=== PATIENT | male | born 1965 | race Two or more races ===

== ENCOUNTER 2016-09-18 23:45 | Observation (INO) | payer BC ==
--- NOTE | ~2016-09-18 | DS ---
Discharge Summary [facility] [address] [place]. [address] NAME: JOCELINE TORRES : 61 STATUS : DIS Aminah PAT#: [id number] AGE: 50 ADM/REG DATE : 09/18/16 MR#: [id number] REPORT SERV DATE: 09/19/16 DICTATED BY: KATHARINE AVITIA DATE: 09/19/16 REPORT STATUS : Draft TRANSCRIBED BY: BROCK DATE: 09/19/16 ADMISSION DATE: 09/18/2016 DISCHARGE DATE: 09/19/2016 CONSULTANTS: Chilo Cruz M.D. DISCHARGE DIAGNOSES: 1. Possible transient ischemic attack. 2. Chest pain. 3. Dysphagia. 4. Cervical radiculopathy. 5. Gastroesophageal reflux disease. 6. Hypertension. 7. Diabetes mellitus type 2. 8. Hyperlipidemia. IMAGIN. CT of the brain without contrast revealed negative head CT. 2. Chest x-ray PA and lateral revealed lungs clear, heart size normal. 3. Carotid blood flow revealed no significant stenosis, demonstrated involving the cervical portions of the internal carotid arteries bilaterally (category N). The vertebral arteries are patent with antegrade flow bilaterally. 4. Echocardiogram revealed normal LV size and systolic function, estimated EF 55%. No regional wall motion abnormalities identified. Mild diastolic dysfunction. Normal RV size and systolic function. Borderline normal left atrial size. Negative intravenous bubble study. No evidence of intracardiac shunt. 5. EKG showed normal sinus rhythm, ventricular rate 65 beats per minute, QT corrected 395 milliseconds. 6. Nuclear myocardial imaging revealed Rhett stage 4 achieved. No anginal chest pain. No EKG changes of ischemia. Imaging demonstrated no ischemia, post exercise LVEF greater than 60%, overall low risk stress test. HISTORY OF PRESENT ILLNESS: For complete history, please refer to H and P by Dr. Marquez Rao. Briefly Mr. Torres is a 50-year-old man who presented to the emergency room with complaints of left-sided paresthesias, dysphagia, and chest pain. He states that he had prior to his admission for three days or so, some left hand pain and numbness as well as some difficulty swallowing, but no pain. He developed some chest pain on the day of his admission. The pain was nonradiating and not associated with any other symptoms. He did have some numbness over his left side of his face, left arm, and left side of his tongue that subsided prior to his admission. He was admitted to the Hospitalist Service for further evaluation and treatment. LABORATORY STUDIES: 1. Troponin x3 were negative at less than 0.02. 2. A lipid panel revealed a cholesterol of 134, HDL 32, LDL 63, triglycerides 199. 3. BNP less than 2. Discharge Summary [place] [address] [facility] [place]. [address] NAME: JOCELINE TORRES : 61 STATUS : DIS Aminah PAT#: [id number] AGE: 50 ADM/REG DATE : 09/18/16 MR#: [id number] REPORT SERV DATE: 09/19/16 DICTATED BY: KATHARINE AVITIA DATE: 09/19/16 REPORT STATUS : Draft TRANSCRIBED BY: BROCK DATE: 09/19/16 4. Hemoglobin A1c 7.1. 5. CBC revealed a white count of 7.4, hemoglobin 15.1, hematocrit 43.3, platelets 262,000. PT 13.4, INR 1.0. HOSPITAL COURSE: Mr. Torres was admitted to a telemetry bed in the clinical decision unit with the diagnosis of TIA. A consult was placed to Dr. Cruz for dysphagia. Laboratory studies were ordered along with serial troponins, results as above. Carotid duplex, echocardiogram, and nuclear stress test were also scheduled. The patient was given DVT prophylaxis, IV fluids, and aspirin 325 mg p.o. daily. In addition, he was provided with his home medication. I initially saw Mr. Torres early afternoon after he returned from his stress test. He denied any chest pain or shortness of breath. His only complaint was a slight headache and intermittent left arm pain. Upon my exam, he was alert and oriented x3. No focal deficits. Lungs are clear to auscultation bilaterally. CV: He had a regular rhythm. No murmurs, rubs, or gallops. ABDOMEN: Soft and nontender. Active bowel sounds. Palpable peripheral pulses without edema. He did have one place upper left back scapular region that was tender upon palpation minimally. When I palpated this area, he complained of some left arm discomfort. Otherwise, he was without complaints. He was seen in the afternoon by Dr. Chilo Cruz, who stated that Mr. Torres could be discharged home as his echo, stress test, carotid ultrasound were normal. Therefore, on the afternoon of 09/19/2016, Mr. Torres was discharged home in stable condition. DISCHARGE INSTRUCTIONS: 1. Diet as tolerated and per Dr. Cruz's instructions for EGD as an outpatient tomorrow at 12 noon. 2. Activity as tolerated. DISCHARGE MEDICATIONS: Aspirin 81 mg p.o. daily, DiaBeta 7.5 mg p.o. b.i.d., Zocor 10 mg p.o. daily at bedtime, Diovan 40 mg p.o. daily, metformin 500 mg p.o. b.i.d., Protonix 40 mg p.o. daily before breakfast and prescription given, ranitidine 300 mg p.o. at bedtime and prescription given, both Protonix and ranitidine prescriptions were per Dr. Cruz. OTHER DISCHARGE INSTRUCTIONS: Mr. Torres is asked to follow up with his primary care provider, Dr. Rockwell in 7 to 10 days, and again with Dr. Cruz tomorrow for upper GI endoscopy. CAROLYN/BROCK HAYDEE CroweP- / [id number] CC: Ambrosio Gonzales MD Discharge Summary [address] [address] NAME: JOCELINE TORRES : 61 STATUS : DIS Aminah PAT#: [id number] AGE: 50 ADM/REG DATE : 09/18/16 MR#: [id number] REPORT SERV DATE: 09/19/16 DICTATED BY: KATHARINE AVITIA DATE: 09/19/16 REPORT STATUS : Draft TRANSCRIBED BY: MODL DATE: 09/19/16 Chilo Cruz M.D.
--- NOTE | ~2016-09-18 | CN ---
Consultation Report [facility] [address] [place]. [address] NAME: JOCELINE TORRES : 61 STATUS : ADM Aminah PAT#: [id number] AGE: 50 ADM/REG DATE : 09/18/16 MR#: [id number] REPORT SERV DATE: 09/19/16 DICTATED BY: BLAKE HDZ DATE: 09/19/16 REPORT STATUS : Draft TRANSCRIBED BY: MODL DATE: 09/19/16 DATE OF CONSULTATION: 09/19/2016 CHIEF COMPLAINT: A 50-year-old male presented with left-sided paresthesia and dysphagia, and has some mild chest pain. Mr. Carrillo is well-known to me. Has a history of reflux disease and difficulty in swallowing, and had an EGD and dilatation done about six years ago. Yesterday, the patient was at home resting when he developed some paresthesia in his left hand, left shoulder, and neck, and then had some chest pain. Hence, was admitted through the ER. Currently, he has no chest pain. No paresthesia. He had an echo stress test done which did not show anything. His carotid artery Doppler and ultrasound are pending. Currently, he feels better. Has no chest pain. No shortness of breath. No palpitation. Has no lightheadedness or dysarthria. Has some difficulty in swallowing, sort of an irritation. PAST MEDICAL HISTORY: Significant for diabetes, hypertension, gastroesophageal reflux disease, and elevated cholesterol. Has no previous history of any heart disease. PAST SURGICAL HISTORY: None. ALLERGIES: NONE KNOWN. SOCIAL HISTORY: He is . Has three children. Works in the [employer]. Does not use any tobacco or alcohol. FAMILY HISTORY: Significant for heart disease. CURRENT MEDICATIONS: Aspirin 81 mg, glyburide 7.5 mg p.o. b.i.d., metformin 500 mg p.o. b.i.d., Zocor 10 mg p.o. daily, and Diovan 40 mg daily. PHYSICAL EXAMINATION: VITAL SIGNS: His temperature is normal. NECK: Supple. Trachea is central. Carotids are well-felt on both sides. CARDIOVASCULAR: S1 and S2 are heard. There is no S3. ABDOMEN: Soft. Bowel sounds are heard. Hernial orifices are normal. HR SYSTEMS ANALYST: Higher function cranial nerves and reflexes are normal. There is no lymphadenopathy. RESPIRATORY SYSTEM: Trachea is central. Clear breath sounds are heard. LABORATORY DATA: Show a white cell count of 7.4, hemoglobin is 15, hematocrit is 43, platelet count is 262. Sodium is 140, potassium is 4.4, chloride is 100, bicarb 30, BUN is 13, creatinine is 0.93, and glucose is 151. Troponin is negative. INR is 1.0. CT scan of the brain without any contrast does not show any abdominal abnormalities. EKG is normal. Chest x-ray is normal. Echocardiogram done and stress test done, both seems to be normal. IMPRESSION: 1. Transient ischemic attack paresthesia. Currently, better. Negative CT scans of the Consultation Report [address] [address] NAME: JOCELINE TORRES : 61 STATUS : ADM Aminah PAT#: [id number] AGE: 50 ADM/REG DATE : 09/18/16 MR#: [id number] REPORT SERV DATE: 09/19/16 DICTATED BY: BLAKE HDZ DATE: 09/19/16 REPORT STATUS : Draft TRANSCRIBED BY: BROCK DATE: 09/19/16 brain. 2. Chest pain. Negative echo and negative stress test. 3. Dysphagia with heart heartburn. 4. Increased cholesterol and triglyceride. 5. Hypertension. 6. Diabetes. PLAN: We will continue the patient on Protonix 40 mg p.o. a.m. and ranitidine 300 mg at night. We will plan to do an upper endoscopy in a.m. Could be discharged home to follow up with me in the GI clinic tomorrow for an upper endoscopy and possible dilatation. CORRINA/BROCK Blake Hdz M.D. / [id number] CC: Amy Isaacs M.D.
--- NOTE | ~2016-09-18 | HP ---
History And Physical [address] [address] NAME: BRIAN CAR : 61 STATUS : ADM Aminah PAT#: [id number] AGE: 50 ADM/REG DATE : 09/18/16 MR#: [id number] REPORT SERV DATE: 09/19/16 DICTATED BY: BETTIE BENITEZ DATE: 09/19/16 REPORT STATUS : Draft TRANSCRIBED BY: MODL DATE: 09/19/16 DATE OF ADMISSION: 09/18/2016 CHIEF COMPLAINT: A 50-year-old male presenting with left-sided paresthesias and dysphagia as well as chest pain. HISTORY OF PRESENTING ILLNESS: The patient's history was obtained through careful interview with the patient, sisters, and two of his children, coupled with review of [facility] medical records. The patient states that about 3 days prior to admission, he first began to develop left hand paresthesias and discomfort. He also began to develop "gassy" feeling in his upper abdomen with belching. Over these last 3 or 4 days, he has had new-onset dysphagia, but no pain. Then, on the day of admission, he developed chest discomfort in the left lateral aspect of his chest, aching in quality, 1 to 2 out of 10 in severity only. No shortness of breath, no nausea or vomiting, no diaphoresis. He has developed since last night some numbness over his tongue, over his left face, and his left arm that has subsided by the time of evaluating him. No lightheadedness, no dysarthria, no double vision, no vertigo, no confusion. The patient claims his diabetes is under good control. REVIEW OF SYSTEMS: Otherwise, a 14-point review of systems was obtained and was negative. PAST MEDICAL HISTORY: 1. Diabetes. 2. Hypertension. 3. Gastroesophageal reflux disorder, seen by Dr. Chilo Cruz. 4. Elevated cholesterol. 5. No previous history of cardiac or lung disease. PAST SURGICAL HISTORY: Denies any. ALLERGIES: NO KNOWN DRUG ALLERGIES. SOCIAL HISTORY: He is , has 3 children. Works in a [employer] immigrated from [facility]. No tobacco abuse history. No alcohol use. FAMILY HISTORY: Father with heart disease. Strong family history of diabetes, asthma, and thyroid disease. History And Physical [address] [address] NAME: BRIAN CAR : 61 STATUS : ADM Aminah PAT#: [id number] AGE: 50 ADM/REG DATE : 09/18/16 MR#: [id number] REPORT SERV DATE: 09/19/16 DICTATED BY: BETTIE BENITEZ DATE: 09/19/16 REPORT STATUS : Draft TRANSCRIBED BY: BROCK DATE: 09/19/16 CURRENT MEDICATIONS: Include aspirin 81 mg daily, glyburide 7.5 mg p.o. b.i.d., metformin 500 mg p.o. b.i.d., Zocor 10 mg p.o. daily, Diovan 40 mg daily. PHYSICAL EXAMINATION: VITAL SIGNS: Temperature 98.4, pulse 80, blood pressure 162/87, respiratory rate, and O2 saturation 97% on room air. GENERAL: Pleasant, cooperative male of descent, who is in no evidence of acute distress. HEENT: Pupils equal, round, and reactive to light. No conjunctival pallor. No scleral icterus. Nares are patent. Oropharynx is clear of obstruction. Moist mucous membranes. NEUROLOGICAL: Cranial nerves II through XII are intact and symmetrical. The patient has 5/5 strength in upper and lower extremities that are symmetrical. NECK: Trachea midline. No thyromegaly. LYMPH: No cervical lymphadenopathy. No supraclavicular lymphadenopathy. RESPIRATORY: Clear to auscultation at bases. No wheezes, rales, or rhonchi. Normal respiratory effort. CARDIOVASCULAR: Regular rate and rhythm. No murmurs, rubs, or gallops. No extremity edema is appreciated. ABDOMEN: Soft, nontender, and nondistended. Normal bowel sounds auscultated throughout. No organomegaly. DERMATOLOGICAL: Warm and dry extremities. No pallor. No cyanosis. PSYCHIATRIC: Normal affect. Good mood. Alert and oriented x3. LABORATORY DATA: White blood count 7.4, hemoglobin 15, hematocrit 43, platelets 262. Sodium 140, potassium 4.4, chloride 100, bicarb 30, BUN 13, creatinine 0.93, glucose 151, troponin negative, INR of 1.0. STUDIES: 1. Chest x-ray by my own evaluation shows no acute cardiopulmonary process. 2. EKG by my own evaluation shows sinus rhythm, no major abnormalities. 3. CT scan of the brain without contrast shows no acute intracranial process. ASSESSMENT AND PLAN: 1. Transient ischemic attack with dysphagia and left paresthesias, placed on aspirin, check carotid ultrasound, check echocardiogram, check fasting lipid panel, check telemetry. Negative CT scan of the brain. 2. Chest pain. Check a nuclear cardiac stress test. Check an echocardiogram. Place on aspirin. 3. Dysphagia with reflux symptoms. Consult Dr. Cruz, caretaker. Obtain a speech therapy evaluation with swallow evaluation. KPAdela/MODAdela Bettie Earl History And Physical [address] [address] NAME: BRIAN CAR : 61 STATUS : ADM Aminah PAT#: [id number] AGE: 50 ADM/REG DATE : 09/18/16 MR#: [id number] REPORT SERV DATE: 09/19/16 DICTATED BY: BETTIE BENITEZ DATE: 09/19/16 REPORT STATUS : Draft TRANSCRIBED BY: BROCK DATE: 09/19/16 Ambrosio Benitez / [id number] CC: MD Chilo Oliver M.D.
[2016-09-18 23:59] LABS: BASOPHILS 1.5 %; BASOPHILS ABSOLUTE 0.11 10/3/uL (0.0-0.16); EOSINOPHILS 2.2 %; EOSINOPHILS ABSOLUTE 0.16 10/3/uL (0.0-0.53); ER CBC TAT 0 Hrs 10 Mins; HEMATOCRIT 43.3 % (40.0-51.0); HEMOGLOBIN 15.1 g/dL (13.6-17.8); IMMATURE GRANULOCYTES 0.1 %; IMMATURE GRANULOCYTES ABSOLUTE 0.01 10/3/uL (0.0-0.11); LYMPHOCYTES 35.4 %; LYMPHOCYTES ABSOLUTE 2.62 10/3/uL (0.67-4.30); MEAN CORPUS HGB CONC 34.9 g/dL (32.0-36.0); MEAN CORPUSCULAR HEMOGLOB 29.7 pg (26.0-34.0); MEAN CORPUSCULAR VOLUME 85.1 fL (80-100); MONOCYTES 7.7 %; MONOCYTES ABSOLUTE 0.57 10/3/uL (0.21-1.20); NEUTROPHILS 53.1 %; NEUTROPHILS ABSOLUTE 3.94 10/3/uL (2.02-8.40); PLATELET COUNT 262 10/3/uL (150-400); RBC DISTRIBUTION WIDTH 12.5 % (12.0-16.0); RED CELL COUNT 5.09 10/6/uL (4.7-6.1); WHITE BLOOD CELLS 7.4 10/3/uL (4.5-10.5)
[2016-09-19 00:01] LABS: MANUAL DIFF NO %
[2016-09-19 00:14] LABS: BUN (BLOOD UREA NITROGEN) 13 MG/DL (6-23); CHEST PAIN PROFILE TAT 0 Hrs 25 Mins; CHLORIDE, SERUM 100 MMOL/L (96-112); CO2 (CARBON DIOXIDE) 30 MMOL/L (24-34); CREATININE 0.93 MG/DL (0.70-1.30); GFR AFRICAN AMERICAN 109 ML/MIN (>=60); GFR NON AFRICAN AMERICAN 94 ML/MIN (>=60); GLUCOSE, SERUM 151 MG/DL (60-99); SODIUM, SERUM 140 MMOL/L (135-148); TROPONIN I <0.02 NG/ML (<0.05)
[2016-09-19 00:17] LABS: PARTIAL THROMBO TIME 28.1 SEC (22.5-37.2); POTASSIUM, SERUM 4.4 MMOL/L (3.5-5.3); PROTIME (NOT ORD) 13.4 SEC (12.0-14.5)
[2016-09-19] MEDS ORDERED: ASAB PO (01:47)
[2016-09-19] MEDS ORDERED: DIABETA5 PO (01:47)
[2016-09-19] MEDS ORDERED: ZOCOR10 PO (01:48)
[2016-09-19] MEDS ORDERED: DIOVAN40 MG PO (01:48)
[2016-09-19] MEDS ORDERED: GLUCPH PO (01:49)
[2016-09-19 03:49] LABS: CHOL/HDL RATIO(NOT ORDER) 5.1 (0-5); CHOLESTEROL 137 MG/DL (< 200); HDL CHOLESTEROL 27 MG/DL (> 39); NON-HDL CHOLESTEROL 110 MG/DL (< 160); TRIGLYCERIDE 406 MG/DL (< 150)
[2016-09-19 03:52] LABS: CK-MB 2.6 NG/ML; CPK 155 U/L (0-200)
[2016-09-19 05:00] LABS: B NATRIURETIC PEPTIDE (BNP) < 2.0 PG/ML (< 100.0)
[2016-09-19 05:21] LABS: GLYCOHEMOGLOBIN (HbA1c) 7.1 % (4.7-6.1)
[2016-09-19 08:34] LABS: BASOPHILS 1.2 %; BASOPHILS ABSOLUTE 0.08 10/3/uL (0.0-0.16); EOSINOPHILS 2.2 %; EOSINOPHILS ABSOLUTE 0.14 10/3/uL (0.0-0.53); HEMATOCRIT 42.5 % (40.0-51.0); HEMOGLOBIN 15.2 g/dL (13.6-17.8); IMMATURE GRANULOCYTES 0.2 %; IMMATURE GRANULOCYTES ABSOLUTE 0.01 10/3/uL (0.0-0.11); LYMPHOCYTES 38.1 %; LYMPHOCYTES ABSOLUTE 2.46 10/3/uL (0.67-4.30); MEAN CORPUS HGB CONC 35.8 g/dL (32.0-36.0); MEAN CORPUSCULAR HEMOGLOB 30.2 pg (26.0-34.0); MEAN CORPUSCULAR VOLUME 84.3 fL (80-100); MEAN PLATELET VOLUME 9.7 fL (9.2-13.0); MONOCYTES 9.3 %; NEUTROPHILS ABSOLUTE 3.16 10/3/uL (2.02-8.40); PLATELET COUNT 245 10/3/uL (150-400); RBC DISTRIBUTION WIDTH 12.7 % (12.0-16.0); RED CELL COUNT 5.04 10/6/uL (4.7-6.1); WHITE BLOOD CELLS 6.5 10/3/uL (4.5-10.5)
[2016-09-19 08:35] LABS: MANUAL DIFF NO %
[2016-09-19 08:51] LABS: A/G RATIO 1.3 (0.7-1.9); ALKALINE PHOSPHATASE 62 U/L (45-117); BUN (BLOOD UREA NITROGEN) 13 MG/DL (6-23); CALCIUM, SERUM 8.9 MG/DL (8.5-10.4); CHLORIDE, SERUM 106 MMOL/L (96-112); CO2 (CARBON DIOXIDE) 26 MMOL/L (24-34); GFR AFRICAN AMERICAN 119 ML/MIN (>=60); GFR NON AFRICAN AMERICAN 103 ML/MIN (>=60); GLOBULIN 3.1 G/DL (2.5-4.1); POTASSIUM, SERUM 3.7 MMOL/L (3.5-5.3); SGOT(AST) 21 U/L (5-40); SGPT(ALT) 37 U/L (5-65); SODIUM, SERUM 142 MMOL/L (135-148); TOTAL BILIRUBIN 0.9 MG/DL (0-1.2); TOTAL PROTEIN 7.1 G/DL (6.0-8.5); TROPONIN I <0.02 NG/ML (<0.05)
[2016-09-19 08:52] LABS: CPK 111 U/L (0-200); GLUCOSE, SERUM 109 MG/DL (60-99)
[2016-09-19 10:07] LABS: CHOL/HDL RATIO(NOT ORDER) 4.2 (0-5); CHOLESTEROL 134 MG/DL (< 200); HDL CHOLESTEROL 32 MG/DL (> 39); LDL CHOLESTEROL 63 MG/DL (< 130); NON-HDL CHOLESTEROL 102 MG/DL (< 160); TRIGLYCERIDE 199 MG/DL (< 150)
[2016-09-19] MEDS ORDERED: ZANTAC300 MG PO (15:21)
[2016-09-19] MEDS ORDERED: PROTONIX PO (15:21)
[2016-09-19 16:56] LABS: CPK 93 U/L (0-200); TROPONIN I <0.02 NG/ML (<0.05)
[2016-09-19 16:58] LABS: CK-MB 1.4 NG/ML
== END 2016-09-19 17:10 | disposition home or self-care (01) ==
LOC: ER 23:45 → ER/OF 23:59 → CDU1 09-19 06:02
PROVIDERS: Emergency Medicine; Hospitalist
DX: R20.9 Unspecified disturbances of skin sensation (principal); R07.9 Chest pain, unspecified; M54.12 Radiculopathy, cervical region; E11.9 Type 2 diabetes mellitus without complications; E78.5 Hyperlipidemia, unspecified; I10 Essential (primary) hypertension; K21.9 Gastro-esophageal reflux disease without esophagitis; E78.00 Pure hypercholesterolemia, unspecified; Z79.82 Long term (current) use of aspirin; Z79.899 Other long term (current) drug therapy
CPT/HCPCS: 70450; 71020; 78452; 80048; 80053; 80061; 82550; 82553; 82962; 83036; 83735; 83880; 84443; 84484; 85025; 85610; 85730; 93005; 93017; 93306; 93880; 96372; 99285; A9270-GY; A9502; G0378; J3411

== ENCOUNTER 2016-09-20 10:45 | Day surgery (SDC) | payer BC ==
--- NOTE | ~2016-09-20 | EGD ---
EGD REPORT [facility] [address] [place]. [address] NAME: BRIAN TSE : 61 STATUS : REG [facility] PAT#: [id number] AGE: 50 ADM/REG DATE : 09/20/16 MR#: [id number] REPORT SERV DATE: 09/21/16 DICTATED BY: BLAKE HDZ DATE: 09/21/16 REPORT STATUS : Draft TRANSCRIBED BY: [facility] DATE: 09/21/16 Endoscopy Center Patient Name: Brian Tse Date of : 1965 Attending MD: BLAKE HDZ MD Procedure Date No Time: 09/20/2016 Procedure: Upper GI endoscopy Indications: Dysphagia, Heartburn, Esophageal reflux Referring MD: Yusuf Rockwell Medicines: Propofol total dose 250 mg IV Complications: No immediate complications. Procedure: Pre-Anesthesia Assessment: - ASA Grade Assessment: II - A patient with mild systemic disease. After obtaining informed consent, the endoscope was passed under direct vision. Throughout the procedure, the patient's blood pressure, pulse, and oxygen saturations were monitored continuously. The GIF H190 [id number] was introduced through the mouth, and advanced to the second part of duodenum. The upper GI endoscopy was accomplished with ease. The patient tolerated the procedure well. Findings: The ampulla, duodenal bulb, first part of the duodenum and 2nd part of the duodenum were normal. Three non-bleeding superficial gastric ulcers with no stigmata of bleeding were found in the gastric antrum. This was biopsied with a cold forceps for histology. Scattered mild inflammation characterized by erythema was found in the gastric body and in the gastric antrum. Biopsy with a cold forceps was performed for histology. One non-bleeding superficial gastric ulcer with no stigmata of bleeding was found in the gastric fundus. The lesion was 5 mm in largest dimension. This was biopsied with a cold forceps for histology. LA Grade A (one or more mucosal breaks less than 5 mm, not extending between tops of 2 mucosal folds) esophagitis with no bleeding was found 38 cm from the incisors. Biopsy with a cold forceps was performed for histology. The middle third of the esophagus and lower third of the esophagus were normal. Multiple areas of ectopic gastric mucosa ( Inlet patch ) were found in the upper third of the esophagus. This was biopsied with a cold forceps for histology. EGD REPORT [place] [id number] [facility] [place]. [address] NAME: BRIAN TSE : 61 STATUS : REG [facility]#: [id number] AGE: 50 ADM/REG DATE : 09/20/16 MR#: [id number] REPORT SERV DATE: 09/21/16 DICTATED BY: BLAKE HDZ DATE: 09/21/16 REPORT STATUS : Draft TRANSCRIBED BY: [employer] DATE: 09/21/16 Impression: - Normal ampulla, duodenal bulb, first part of the duodenum and 2nd part of the duodenum. - Gastric ulcers with clean base. Biopsied. - Gastritis. Biopsied. - Gastric ulcer with clean base. Biopsied. - LA Grade A reflux esophagitis. Biopsied. - Normal , middle third of esophagus and lower third of esophagus. - Ectopic gastric mucosa in the upper third of the esophagus. Biopsied. Recommendation: - Discharge patient to home (ambulatory). - Regular diet daily. - Continue present medications. - Return to GI clinic in 2 weeks. 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 All rights reserved. The codes documented in this report are preliminary and upon nursing home assistant administrator review may be revised to meet current compliance requirements. Blake Hdz MD BLAKE HDZ MD 09/20/2016 1:12 PM This report has been signed electronically. Number of Addenda: 0 Note Initiated On: 09/20/2016 12:39 PM Scope Withdrawal Time 0 hours 0 minutes 0 seconds [id number] [id number]
--- NOTE | ~2016-09-20 | EGD ---
EGD REPORT [facility] [address] [place] [address] NAME: BRIAN TSE : 61 STATUS : REG [facility] PAT#: [id number] AGE: 50 ADM/REG DATE : 09/20/16 MR#: [id number] REPORT SERV DATE: 09/20/16 DICTATED BY: BLAKE HDZ DATE: 09/20/16 REPORT STATUS : Draft TRANSCRIBED BY: [facility] DATE: 09/20/16 Endoscopy Center Patient Name: Brian Tes Date of : 1965 Attending MD: BLAKE HDZ MD Procedure Date No Time: 09/20/2016 Procedure: Upper GI endoscopy Indications: Dysphagia, Heartburn, Esophageal reflux Referring MD: Yusuf Rockwell Medicines: Propofol total dose 250 mg IV Complications: No immediate complications. Procedure: Pre-Anesthesia Assessment: - ASA Grade Assessment: II - A patient with mild systemic disease. After obtaining informed consent, the endoscope was passed under direct vision. Throughout the procedure, the patient's blood pressure, pulse, and oxygen saturations were monitored continuously. The GIF H190 [id number] was introduced through the mouth, and advanced to the second part of duodenum. The upper GI endoscopy was accomplished with ease. The patient tolerated the procedure well. Findings: The ampulla, duodenal bulb, first part of the duodenum and 2nd part of the duodenum were normal. Three non-bleeding superficial gastric ulcers with no stigmata of bleeding were found in the gastric antrum. This was biopsied with a cold forceps for histology. Scattered mild inflammation characterized by erythema was found in the gastric body and in the gastric antrum. Biopsy with a cold forceps was performed for histology. One non-bleeding superficial gastric ulcer with no stigmata of bleeding was found in the gastric fundus. The lesion was 5 mm in largest dimension. This was biopsied with a cold forceps for histology. LA Grade A (one or more mucosal breaks less than 5 mm, not extending between tops of 2 mucosal folds) esophagitis with no bleeding was found 38 cm from the incisors. Biopsy with a cold forceps was performed for histology. The middle third of the esophagus and lower third of the esophagus were normal. Multiple areas of ectopic gastric mucosa ( Inlet patch ) were found in the upper third of the esophagus. This was biopsied with a cold forceps for histology. EGD REPORT [place] [id number] [facility] [place]. [address] NAME: BRIAN TSE : 61 STATUS : REG [facility]#: [id number] AGE: 50 ADM/REG DATE : 09/20/16 MR#: [id number] REPORT SERV DATE: 09/20/16 DICTATED BY: BLAKE HDZ DATE: 09/20/16 REPORT STATUS : Draft TRANSCRIBED BY: [employer] DATE: 09/20/16 Impression: - Normal ampulla, duodenal bulb, first part of the duodenum and 2nd part of the duodenum. - Gastric ulcers with clean base. Biopsied. - Gastritis. Biopsied. - Gastric ulcer with clean base. Biopsied. - LA Grade A reflux esophagitis. Biopsied. - Normal , middle third of esophagus and lower third of esophagus. - Ectopic gastric mucosa in the upper third of the esophagus. Biopsied. Recommendation: - Discharge patient to home (ambulatory). - Regular diet daily. - Continue present medications. - Return to GI clinic in 2 weeks. 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 All rights reserved. The codes documented in this report are preliminary and upon media promoter review may be revised to meet current compliance requirements. Blake Hdz MD BLAKE HDZ MD 09/20/2016 1:12 PM This report has been signed electronically. Number of Addenda: 0 Note Initiated On: 09/20/2016 12:39 PM Scope Withdrawal Time 0 hours 0 minutes 0 seconds [id number] [id number]
--- NOTE | ~2016-09-20 | EGD ---
EGD REPORT [facility] [address] [place]. [id number] NAME: BRIAN TSE : [birth year] [place] : [place] [facility] [place] [id number] AGE: 50 ADM/REG DATE : 09/20/16 MR#: [id number] REPORT SERV DATE: 09/20/16 DICTATED BY: BLAKE HDZ DATE: 09/20/16 REPORT STATUS : Draft TRANSCRIBED BY: [facility] DATE: 09/20/16 [facility] Patient Name: Brian Tse Date of : 1965 Attending MD: BLAKE HDZ MD Procedure Date No Time: 09/20/2016 Procedure: Upper GI endoscopy Indications: Dysphagia, Heartburn, Esophageal reflux Referring MD: Yusuf Rockwell Medicines: Propofol total dose 250 mg IV Complications: No immediate complications. Procedure: Pre-Anesthesia Assessment: - ASA Grade Assessment: II - A patient with mild systemic disease. After obtaining informed consent, the endoscope was passed under direct vision. Throughout the procedure, the patient's blood pressure, pulse, and oxygen saturations were monitored continuously. The GIF [id number] was introduced through the mouth, and advanced to the second part of duodenum. The upper GI endoscopy was accomplished with ease. The patient tolerated the procedure well. Findings: The ampulla, duodenal bulb, first part of the duodenum and 2nd part of the duodenum were normal. Three non-bleeding superficial gastric ulcers with no stigmata of bleeding were found in the gastric antrum. This was biopsied with a cold forceps for histology. Scattered mild inflammation characterized by erythema was found in the gastric body and in the gastric antrum. Biopsy with a cold forceps was performed for histology. One non-bleeding superficial gastric ulcer with no stigmata of bleeding was found in the gastric fundus. The lesion was 5 mm in largest dimension. This was biopsied with a cold forceps for histology. LA Grade A (one or more mucosal breaks less than 5 mm, not extending between tops of 2 mucosal folds) esophagitis with no bleeding was found 38 cm from the incisors. Biopsy with a cold forceps was performed for histology. The middle third of the esophagus and lower third of the esophagus were normal. Multiple areas of ectopic gastric mucosa ( Inlet patch ) were found in the upper third of the esophagus. This was biopsied with a cold forceps for histology. EGD REPORT [place] [id number] [facility] [place]. [address] NAME: BRIAN TSE : [birth year] STATUS : REG [facility]#: [id number] AGE: 50 ADM/REG DATE : 09/20/16 MR#: [id number] REPORT SERV DATE: 09/20/16 DICTATED BY: BLAKE HDZ DATE: 09/20/16 REPORT STATUS : Draft TRANSCRIBED BY: [employer] DATE: 09/20/16 Impression: - Normal ampulla, duodenal bulb, first part of the duodenum and 2nd part of the duodenum. - Gastric ulcers with clean base. Biopsied. - Gastritis. Biopsied. - Gastric ulcer with clean base. Biopsied. - LA Grade A reflux esophagitis. Biopsied. - Normal , middle third of esophagus and lower third of esophagus. - Ectopic gastric mucosa in the upper third of the esophagus. Biopsied. Recommendation: - Discharge patient to home (ambulatory). - Regular diet daily. - Continue present medications. - Return to GI clinic in 2 weeks. 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 All rights reserved. The codes documented in this report are preliminary and upon signal engineer review may be revised to meet current compliance requirements. Blake Hdz MD BLAKE HDZ MD 09/20/2016 1:12 PM This report has been signed electronically. Number of Addenda: 0 Note Initiated On: 09/20/2016 12:39 PM Scope Withdrawal Time 0 hours 0 minutes 0 seconds [id number] [id number]
[~2016-09-20 10:45] MED LIST: ASAB PO; DIABETA5 PO; DIOVAN40 MG PO; GLUCPH PO; PROTONIX PO; ZANTAC300 MG PO; ZOCOR10 PO
== END 2016-09-20 23:59 | disposition home health service (06) ==
LOC: DMU 10:45
PROVIDERS: Internal Medicine Gastroenterology
PROC: 0DB18ZX Excision of Upper Esophagus, Via Natural or Artificial Opening Endoscopic, Diagnostic (ICD-10-PCS; 2016-09-20)
PROC: 0DB68ZX Excision of Stomach, Via Natural or Artificial Opening Endoscopic, Diagnostic (ICD-10-PCS; principal; 2016-09-20 12:00)
DX: K25.9 Gastric ulcer, unspecified as acute or chronic, without hemorrhage or perforation (principal); E11.9 Type 2 diabetes mellitus without complications; I10 Essential (primary) hypertension; K21.9 Gastro-esophageal reflux disease without esophagitis; E78.5 Hyperlipidemia, unspecified; K21.0 Gastro-esophageal reflux disease with esophagitis
CPT/HCPCS: 82962; 88305; 88342

== ENCOUNTER 2016-09-28 08:18 | Emergency (ER) | payer BC ==
[2016-09-28 05:51] LABS: BASOPHILS 0.8 %; BASOPHILS ABSOLUTE 0.06 10/3/uL (0.0-0.16); EOSINOPHILS 3.3 %; EOSINOPHILS ABSOLUTE 0.25 10/3/uL (0.0-0.53); HEMATOCRIT 42.4 % (40.0-51.0); HEMOGLOBIN 15.1 g/dL (13.6-17.8); IMMATURE GRANULOCYTES 0.3 %; IMMATURE GRANULOCYTES ABSOLUTE 0.02 10/3/uL (0.0-0.11); LYMPHOCYTES 40.7 %; LYMPHOCYTES ABSOLUTE 3.04 10/3/uL (0.67-4.30); MEAN CORPUS HGB CONC 35.6 g/dL (32.0-36.0); MEAN CORPUSCULAR HEMOGLOB 29.6 pg (26.0-34.0); MEAN CORPUSCULAR VOLUME 83.1 fL (80-100); MEAN PLATELET VOLUME 9.7 fL (9.2-13.0); MONOCYTES 8.8 %; MONOCYTES ABSOLUTE 0.66 10/3/uL (0.21-1.20); NEUTROPHILS 46.1 %; NEUTROPHILS ABSOLUTE 3.44 10/3/uL (2.02-8.40); PLATELET COUNT 248 10/3/uL (150-400); RBC DISTRIBUTION WIDTH 12.7 % (12.0-16.0); WHITE BLOOD CELLS 7.5 10/3/uL (4.5-10.5)
[2016-09-28 05:54] LABS: ER CBC TAT 0 Hrs 00 MinsNP; MANUAL DIFF NO %
[2016-09-28 05:58] LABS: INTERNATIONAL NORMAL RATI 1.1 UNITS (-); PARTIAL THROMBO TIME 30.4 SEC (22.5-37.2); PROTIME (NOT ORD) 13.6 SEC (12.0-14.5)
[2016-09-28 06:09] LABS: BUN (BLOOD UREA NITROGEN) 12 MG/DL (6-23); CALCIUM, SERUM 8.9 MG/DL (8.5-10.4); CHEST PAIN PROFILE TAT 0 Hrs 00 Mins; CHLORIDE, SERUM 103 MMOL/L (96-112); CO2 (CARBON DIOXIDE) 29 MMOL/L (24-34); CREATININE 0.93 MG/DL (0.70-1.30); GFR AFRICAN AMERICAN 109 ML/MIN (>=60); GFR NON AFRICAN AMERICAN 94 ML/MIN (>=60); POTASSIUM, SERUM 3.6 MMOL/L (3.5-5.3); SODIUM, SERUM 138 MMOL/L (135-148); TROPONIN I <0.02 NG/ML (<0.05)
[2016-09-28 06:11] LABS: GLUCOSE, SERUM 136 MG/DL (60-99)
== END 2016-09-28 12:20 | disposition home or self-care (01) ==
LOC: ER 08:18
PROVIDERS: Specialist
DX: R20.2 Paresthesia of skin (principal); M79.602 Pain in left arm; I10 Essential (primary) hypertension; K21.9 Gastro-esophageal reflux disease without esophagitis; E11.9 Type 2 diabetes mellitus without complications; E78.5 Hyperlipidemia, unspecified; Z79.82 Long term (current) use of aspirin; Z79.84 Long term (current) use of oral hypoglycemic drugs; Z79.899 Other long term (current) drug therapy
CPT/HCPCS: 70551; 71020; 72141; 80048; 83735; 84484; 85025; 85610; 85730; 93005; 99285; A9270-GY